=== PATIENT | female | born 1945 | race Caucasian/White ===

== ENCOUNTER 2017-09-14 08:50 | Day surgery (SDC) | payer MEDICARE, OTHER ==
[~2017-09-14] VITALS: Ht 160 cm; Wt 75.5 kg
[~2017-09-14 08:50] MED LIST: ARIP15 PO; ASPI325 PO; CALCA500CH PO; CITA20 PO; CLOM50A PO; DILT180; DULO30 PO; FISH1000 PO; LORA2 PO; METO25ER; MIRT30 PO; MULVITMINE PO; Omeprazole20 M1; QUET300 PO; TOCO1000 PO; TOCO400 PO; TRAZ150T57 PO
== END 2017-09-14 10:46 | disposition home or self-care (01) ==
LOC: ORSCSDS 08:50
PROVIDERS: Internal Medicine Gastroenterology
PROC: 0DBN8ZX Excision of Sigmoid Colon, Via Natural or Artificial Opening Endoscopic, Diagnostic (ICD-10-PCS; principal; 2017-09-14 10:15)
PROC: 0DBK8ZX Excision of Ascending Colon, Via Natural or Artificial Opening Endoscopic, Diagnostic (ICD-10-PCS; principal; 2017-09-14 10:15)
PROC: 0DBL8ZX Excision of Transverse Colon, Via Natural or Artificial Opening Endoscopic, Diagnostic (ICD-10-PCS; principal; 2017-09-14 10:15)
PROC: 0DBM8ZX Excision of Descending Colon, Via Natural or Artificial Opening Endoscopic, Diagnostic (ICD-10-PCS; principal; 2017-09-14 10:15)
DX: Z12.11 Encounter for screening for malignant neoplasm of colon (principal); D12.2 Benign neoplasm of ascending colon; D12.3 Benign neoplasm of transverse colon; D12.4 Benign neoplasm of descending colon; D12.5 Benign neoplasm of sigmoid colon; K64.8 Other hemorrhoids; K57.30 Diverticulosis of large intestine without perforation or abscess without bleeding; E78.5 Hyperlipidemia, unspecified; I10 Essential (primary) hypertension; I48.91 Unspecified atrial fibrillation; G47.33 Obstructive sleep apnea (adult) (pediatric); F32.9 Major depressive disorder, single episode, unspecified; Z87.891 Personal history of nicotine dependence; Z79.82 Long term (current) use of aspirin; Z79.899 Other long term (current) drug therapy
CPT/HCPCS: 88305

== ENCOUNTER → 2018-07-24 | Outpatient (CLI) | payer MEDICARE, OTHER | END | disposition home or self-care (01) | LOC: LAB SHORT 07:24 → PLD 07:24 | DX: D48.5 Neoplasm of uncertain behavior of skin (principal) | CPT/HCPCS: 88305 ==

== ENCOUNTER 2018-08-31 16:02 | Emergency (ER) | payer MEDICARE, OTHER ==
[~2018-08-31] VITALS: Ht 160 cm; Wt 73.9 kg
[2018-08-31 16:22] LABS: BASOPHILS ABSOLUTE AUTO 0.05 K/mm3 (0.00-0.23); BASOPHILS PERCENT AUTO 0 % (0-2); EOSINOPHILS ABSOLUTE AUTO 0.01 K/mm3 (0.00-0.68); EOSINOPHILS PERCENT AUTO 0 % (0-6); Hematocrit 42.1 % (33.0-51.0); Hemoglobin 14.3 g/dL (11.5-16.0); IMMATURE GRAN ABSOLUTE AUTO 0.06 K/mm3 (0.00-0.10); IMMATURE GRAN PERCENT AUTO 0 % (0-1); LYMPHOCYTES ABSOLUTE AUTO 1.84 K/mm3 (0.84-5.20); LYMPHOCYTES PERCENT AUTO 12 % (21-46); MONOCYTES PERCENT AUTO 7 % (4-13); Mean Corpuscular HGB 32.8 pg (26.0-34.0); Mean Corpuscular Volume 97 fL (80-100); NEUTROPHILS ABSOLUTE AUTO 11.98 K/mm3 (1.96-9.15); NEUTROPHILS PERCENT AUTO 80 % (41-73); Platelet Count 231 K/mm3 (150-400); RDW Coefficient Variation 12.8 % (11.7-14.2); RDW Standard Deviation 45.4 fL (35.1-46.3); Red Blood Cell Count 4.36 M/mm3 (3.80-5.20); White Blood Cell Count 14.94 K/mm3 (4.00-11.30)
[2018-08-31 16:44] LABS: Alanine Aminotransfer (ALT/SGP 79 U/L (12-78); Albumin, Blood 3.5 g/dL (3.4-5.0); Albumin/Globulin Ratio 0.9 (0.8-1.8); Alk Phos 117 U/L (50-136); Anion Gap 12 mmol/L (6-16); Aspartate Aminotrans (AST/SGOT 70 U/L (12-37); Bilirubin, Total 0.7 mg/dL (0.1-1.0); Blood Urea Nitrogen 30 mg/dL (8-24); Bun/Creatinine Ratio 30.8 (12.0-20.0); CO2, Blood 22 mmol/L (21-32); Calcium, Blood 8.6 mg/dL (8.5-10.1); Chloride, Blood 105 mmol/L (98-108); Creatinine, Blood 0.98 mg/dL (0.40-1.00); Globulin, Blood 3.7 g/dL (2.2-4.0); Glomerular Filtration Rate 59 (60-); Glucose, Blood 282 mg/dL (70-99); Sodium, Blood 139 mmol/L (136-145); Total Protein, Blood 7.2 g/dL (6.4-8.2); Troponin I <0.015 ng/mL (0.000-0.040)
== END 2018-08-31 17:45 | disposition home or self-care (01) ==
LOC: ER 16:02
PROVIDERS: Emergency Medicine
DX: I48.92 Unspecified atrial flutter (principal); E66.9 Obesity, unspecified; I48.91 Unspecified atrial fibrillation; Z87.891 Personal history of nicotine dependence
CPT/HCPCS: 80053; 84484; 85025; 92960; 93005; 93010; 96374-59; 99285-25; J2704; J7030

== ENCOUNTER 2020-07-14 15:38 | Observation (INO) | payer MEDICARE, OTHER ==
[~2020-07-14] VITALS: Ht 160 cm; Wt 60.2 kg
[~2020-07-14 15:38] MED LIST changes: -Omeprazole20 M1
[2020-07-14 17:00] LABS: Calcium, Ionized (POC) 1.09 mmol/L (1.10-1.46); Chloride (POC) 98 mmol/L (98-108); Creatinine (POC) 1.4 mg/dL (0.6-1.0); Glucose (ISTAT POC) 85 mg/dL (70-99); Hemoglobin (POC) 13.3 g/dL (12.0-16.0); Potassium (POC) 4.2 mmol/L (3.5-5.5); Sodium (POC) 134 mmol/L (135-148); Total CO2 (POC) 27 mmol/L (21-32)
[2020-07-14] MEDS ORDERED: MAGNESIUM OXID500 MG PO (17:08)
[2020-07-14] MEDS ORDERED: VENL150ER PO (17:08)
[2020-07-14] MEDS ORDERED: TROSPIUM CHLORI20 MG PO (17:09)
[2020-07-14] MEDS ORDERED: MELA3 PO (17:09)
[2020-07-14] MEDS ORDERED: Amiodarone HCl200 MG PO (17:09)
[2020-07-14] MEDS ORDERED: ENTRESTO 24 MG1 EACH PO (17:10)
[2020-07-14] MEDS ORDERED: ONE DAILY WOME1 EAC2 PO (17:10)
[2020-07-14] MEDS ORDERED: ELIQUIS5 MG PO (17:10)
[2020-07-14] MEDS ORDERED: Vitamin B-121000 MCG PO (17:10)
[2020-07-14] MEDS ORDERED: Omeprazole20 M1 PO (19:49)
[2020-07-14 20:00] LABS: BASOPHILS ABSOLUTE AUTO 0.04 K/mm3 (0.00-0.23); BASOPHILS PERCENT AUTO 0 % (0-2); EOSINOPHILS ABSOLUTE AUTO 0.03 K/mm3 (0.00-0.68); EOSINOPHILS PERCENT AUTO 0 % (0-6); Hematocrit 39.2 % (33.0-51.0); Hemoglobin 13.5 g/dL (11.5-16.0); IMMATURE GRAN ABSOLUTE AUTO 0.04 K/mm3 (0.00-0.10); IMMATURE GRAN PERCENT AUTO 0 % (0-1); LYMPHOCYTES ABSOLUTE AUTO 2.32 K/mm3 (0.84-5.20); LYMPHOCYTES PERCENT AUTO 20 % (21-46); MONOCYTES ABSOLUTE AUTO 1.03 K/mm3 (0.16-1.47); MONOCYTES PERCENT AUTO 9 % (4-13); Mean Corpuscular HGB 31.9 pg (26.0-34.0); Mean Corpuscular HGB Conc 34.4 g/dL (31.5-36.5); Mean Corpuscular Volume 93 fL (80-100); Mean Platelet Volume 9.1 fL (9.1-12.4); NEUTROPHILS ABSOLUTE AUTO 7.97 K/mm3 (1.96-9.15); NEUTROPHILS PERCENT AUTO 70 % (41-73); Platelet Count 190 K/mm3 (150-400); RDW Coefficient Variation 12.4 % (11.7-14.2); RDW Standard Deviation 41.9 fL (35.1-46.3); Red Blood Cell Count 4.23 M/mm3 (3.80-5.20); White Blood Cell Count 11.43 K/mm3 (4.00-11.30)
[2020-07-14 20:25] LABS: Albumin, Blood 2.7 g/dL (3.4-5.0); Bilirubin, Total 0.7 mg/dL (0.1-1.0); Calcium, Blood 6.6 mg/dL (8.5-10.1); Globulin, Blood 2.6 g/dL (2.2-4.0); Potassium, Blood 3.2 mmol/L (3.5-5.5); Total Protein, Blood 5.3 g/dL (6.4-8.2)
[2020-07-14 20:48] LABS: SARS-Cov-2 (COVID-19) PCR, MMC NEGATIVE (NEGATIVE)
--- NOTE | 2020-07-14 23:31 | NUR ---
ADMIT PT ADMITTED FOR L HIP/PELVIS FX. ARRIVED TO RM @2315. SLIDE TRANSFER TO NEW BED. VERBAL, RESPONDS APPROPRIATELY TO YES/NO QUESTIONS. CALL LIGHT & BED ALARM IN PLACE. WILL MONITOR.
--- NOTE | 2020-07-15 06:26 | NUR ---
SHIFT SUMMARY AOX2-UNAWARE DATE/TOWN, KNOWS [facility] IN HOSPITAL. FOLLOWS SIMPLE DIRECTIONS. FORGETFUL & CONFUSED. STATES "I DON'T KNOW" TO MANY QUESTIONS. HX DEMENTIA. SLOW TO RESPOND, GARBLE, MUMMBLING SPEECH @TIMES. HAS INFREQUENT ALLOVER BODY TWITCHING. PT DROWSY, FALLS ASLEEP WITHIN SECONDS OF BEING STIMULATED, WAKENS BACK UP c VERBAL STIMULI. ADMITTED FOR L HIP/PELVIS FX. DENIES ANY PAIN @REST, DOES GRIMACE, MOAN c REPOSITIONING. NO PAIN MEDS GIVEN SINCE PT VERY DROWSY. SPO2 DROPS TO 70'S WHEN PT FALLS ASLEEP W/O CPAP ON, CPAP PLACED & CONT PULSE OX >90%. HAS BRUISES SCATTERED T/O BODY FROM FALLING FREQUENTLY @HOME. CALL LIGHT & BED ALARM IN PLACE FOR SAFETY.
[2020-07-15 07:03] LABS: BASOPHILS ABSOLUTE AUTO 0.05 K/mm3 (0.00-0.23); BASOPHILS PERCENT AUTO 1 % (0-2); EOSINOPHILS ABSOLUTE AUTO 0.05 K/mm3 (0.00-0.68); EOSINOPHILS PERCENT AUTO 1 % (0-6); Hematocrit 37.2 % (33.0-51.0); Hemoglobin 12.7 g/dL (11.5-16.0); IMMATURE GRAN ABSOLUTE AUTO 0.03 K/mm3 (0.00-0.10); IMMATURE GRAN PERCENT AUTO 0 % (0-1); LYMPHOCYTES ABSOLUTE AUTO 2.14 K/mm3 (0.84-5.20); LYMPHOCYTES PERCENT AUTO 26 % (21-46); MONOCYTES ABSOLUTE AUTO 0.98 K/mm3 (0.16-1.47); MONOCYTES PERCENT AUTO 12 % (4-13); Mean Corpuscular HGB 31.7 pg (26.0-34.0); Mean Corpuscular HGB Conc 34.1 g/dL (31.5-36.5); Mean Corpuscular Volume 93 fL (80-100); Mean Platelet Volume 9.9 fL (9.1-12.4); NEUTROPHILS ABSOLUTE AUTO 4.85 K/mm3 (1.96-9.15); NEUTROPHILS PERCENT AUTO 60 % (41-73); Platelet Count 178 K/mm3 (150-400); RDW Coefficient Variation 12.2 % (11.7-14.2); RDW Standard Deviation 42.1 fL (35.1-46.3); Red Blood Cell Count 4.01 M/mm3 (3.80-5.20)
[2020-07-15 07:29] LABS: Bun/Creatinine Ratio 19.8 (12.0-20.0); Creatinine, Blood 1.31 mg/dL (0.40-1.00); Potassium, Blood 4.2 mmol/L (3.5-5.5)
[2020-07-15 08:09] LABS: Calcium, Blood 8.8 mg/dL (8.5-10.1)
--- NOTE | 2020-07-15 17:00 | NUR ---
CARE COORDINATION REFERRAL - ADMIT: 07/14/2020 DISCHARGE: DX: L HIP FRACTURE CC: Tyson MAYS MORGAN CALL: RESIDENCE: HOME [address] [facility] [address], [place]. [phone] CAREGIVER: KATJA BRANDON, SPOUSE / PARTNER, DX: L HIP FRACTURE, ANXIETY, A-FIB, HTN DME: CPAP MACHINE AND SUPPLIES CCM: NONE HOME HEALTH: NONE SUMMARY: PT. PRESENTED TO THE ED VIA EMS WITH CHIEF COMPLAINT OF LEFT HIP PAIN AFTER A GROUND LEVEL FALL 1-2 HOURS PRIOR TO ARRIVAL. SHE TRIPPED ON A RUG, WHICH CAUSED HER TO FALL ON THE LEFT SIDE AND HIT HER HEAD. SHE WAS NOT ABLE TO WALK AFTERWARDS DUE TO PAIN IN HER LEFT HIP. IMAGING REVIELED NONDISPLACED FRACTURES OF THE LEFT SUPERIOR AND INFERIOR PUBIC RAMI. PT. SUBSEQUENTLY ADMITTED. Impression and plan as noted in chart. Discussed care with Dr. Delvis Cantu this am. Ortho was consulted regarding patient's care. No surgical intervention indicated. Additionally, PT will evaluate ability to self-transfer. Pt. could potentially discharge by Monday or Monday this week with home health in place. Noted by Tyson Mays
[2020-07-15 18:00] LABS: Source, Urine Catheter
[2020-07-15 18:04] LABS: Bilirubin, Urine Neg (Neg); Blood, Urine Neg (Neg); Color, Urine Yellow (P-Yellow); Glucose Qualitative, Urine Neg (Neg); Ketones, Urine 1+ (Neg); Leukocyte Esterase, Urine 1+ (Neg); Nitrite, Urine Neg (Neg); Protein, Urine 1+ (Neg); Urobilinogen, Urine NORM (Normal)
--- NOTE | 2020-07-15 18:09 | NUR ---
SHIFT SUMMARY L HIP PAINFUL THIS SHIFT, GOT TYLENOL AND OXY. NO URINE OUTPUT, BLADDER SCANNED AT 430/5PM WHICH SHOWED 420ML. CALLED DR TORRES, HE ORDERED NS BOLUS 500CC AND A DANIEL PLACED, PT UNABLE TO PASS THE URINE IN HER BLADDER. DANIEL PLACED AT 1730. GOT UP WITH PT WITH AO1 AND GAIT BELT. NEEDS LOTS OF CUES TO REMAIN NON WT BEARING ON LLE. IN THE MORNING, SHE HAD BEEN DESATING WITH NAPS, SHE REMAINED ON CPAP UNTIL SHE WAS FULLY AWAKE INTHE AFTERNOON. VISITED. PT ORIENTED TO PLACE AND FALLS, BUT DEFINITELY HAS A COGNITIVE DEFICIT, OT TO DO EVAL TOMORROW. CALL LIGHT IN REACH, [facility]
[2020-07-15 18:27] LABS: Appearance, Urine Clear (Clear)
[2020-07-15 18:29] LABS: Bacteria Mod /hpf; Red Blood Cells, Urine 0-2 /hpf (0-2); Squamous Epithelial Cells Few /hpf (Few)
[2020-07-16] MEDS ORDERED: OMEPRAZOLE MAGN20 M1 PO (05:08)
--- NOTE | 2020-07-16 05:50 | NUR ---
SHIFT SUMMARY- PT. A&OX2, FORGETFUL. ON BEDREST LAST NIGHT, PAINFUL TO THE L HIP. MEDICATED PER EMAR WITH GOOD EFFECT. PT. ON RA WHILE AWAKE USES CPAP @HS. CONT BIOX IN PLACE. DANIEL CATHETER PATENT AND DRAINING, ATTENDS ON. BOTTOM RED, MEPILEX APPLIED TO SACRUM. PT. DENIES ANY NEEDS AT THIS TIME, VSS. CALL LIGHT WITHIN REACH, SIDE RAILS UPX2, AND BED ALARM ON FOR SAFETY. WILL CONT TO MONITOR.
--- NOTE | 2020-07-16 08:00 | NUR ---
PT PLEASANT, SOME SLOW TO RESPOND, A/O X2+. NOT ABLE TO RECALL PRESIDENT. STATES PAIN MUCH BETTER WHEN SITTING IN CHAIR TODAY. SOME UNABLE TO ANSWER SOME QUESTIONS. FORGOT PH THERAPY WAS JUST IN ROOM 15 MIN PRIOR. HR REG, NO MURMER NOTED. NO TELE. LUNGS CLEAR T/O. RESP ARE EVEN, UNLABORED. ON R.A. BT X4 LAST B/M 2 DAYS. PT UNSURE. VIODS DANIEL CATH. CLEAR YELLOW FLUID DRAINING. BED IN LOW POSITION, CALL LITE IN REACH, CALLS APPROP. BED ALARM ON FOR SAFETY
--- NOTE | 2020-07-16 17:50 | NUR ---
PT PLEASANT COOP TODAY. DID HAVE MUCH INCREASED ANX WHEN HUSB HERE. WAS CALM PRIOR TO VISIT. DR NATHAN IN TO SEE THIS TINY. GOAL FOR DISCHARGE IS FOR PT TO GET STRONG ENOUGH TO AMBULATE ABOUT HOME TO BE ABLE TO GO HOME. NO NEW CONERNS NOTED TODAY. BED IN LOW POSITION, CALL LITE IN REACH, BED ALRM ON FOR SAFETY
[2020-07-17 04:56] LABS: BASOPHILS ABSOLUTE AUTO 0.04 K/mm3 (0.00-0.23); BASOPHILS PERCENT AUTO 1 % (0-2); EOSINOPHILS ABSOLUTE AUTO 0.08 K/mm3 (0.00-0.68); EOSINOPHILS PERCENT AUTO 1 % (0-6); Hematocrit 34.7 % (33.0-51.0); Hemoglobin 11.8 g/dL (11.5-16.0); IMMATURE GRAN ABSOLUTE AUTO 0.02 K/mm3 (0.00-0.10); IMMATURE GRAN PERCENT AUTO 0 % (0-1); LYMPHOCYTES ABSOLUTE AUTO 1.47 K/mm3 (0.84-5.20); LYMPHOCYTES PERCENT AUTO 21 % (21-46); MONOCYTES ABSOLUTE AUTO 0.93 K/mm3 (0.16-1.47); MONOCYTES PERCENT AUTO 13 % (4-13); Mean Corpuscular HGB 31.6 pg (26.0-34.0); Mean Corpuscular Volume 93 fL (80-100); Mean Platelet Volume 9.5 fL (9.1-12.4); NEUTROPHILS ABSOLUTE AUTO 4.54 K/mm3 (1.96-9.15); NEUTROPHILS PERCENT AUTO 64 % (41-73); Platelet Count 140 K/mm3 (150-400); RDW Coefficient Variation 12.4 % (11.7-14.2); RDW Standard Deviation 42.1 fL (35.1-46.3); Red Blood Cell Count 3.74 M/mm3 (3.80-5.20); White Blood Cell Count 7.08 K/mm3 (4.00-11.30)
[2020-07-17 05:15] LABS: Albumin, Blood 3.3 g/dL (3.4-5.0); Bilirubin, Total 0.9 mg/dL (0.1-1.0); Bun/Creatinine Ratio 20.2 (12.0-20.0); Calcium, Blood 8.3 mg/dL (8.5-10.1); Creatinine, Blood 1.19 mg/dL (0.40-1.00); Globulin, Blood 3.4 g/dL (2.2-4.0); Potassium, Blood 4.2 mmol/L (3.5-5.5); Total Protein, Blood 6.7 g/dL (6.4-8.2)
--- NOTE | 2020-07-17 06:10 | NUR ---
SHIFT SUMMARY- PT. VERY ANXIOUS DURING SHIFT CHANGE, SITTING UP IN CHAIR. DAY RN AND THIS NURSE ASSISTED PT. BACK INTO BED REPOSITIONED FOR COMFORT AND REASSURED SAFETY. C/O PAIN TO L HIP, MEDICATED PER EMAR GOOD RELIEF. PT. CONTINUED TO BE ANXIOUS T/O THE NIGHT. NOTIFIED HOSPITALIST 2X, RECEIVED ORDER FOR PO BENADRYL WITH NO EFFECT, NEXT ORDER FOR PO ATIVAN WITH VERY LITTLE EFFECT. PT. RESTLESS IN BED AND PULLING ON DANIEL CATHETER. REPOSITIONED FOR COMFORT SEVERAL TIMES DURING THE NIGHT. PLACED ON IV FLUIDS X1L FOR LOW BP. CALL LIGHT WITHIN REACH, SIDE RAILS UPX2, AND BED ALARM ON. WILL CONT TO MONITOR.
--- NOTE | 2020-07-17 07:00 | NUR ---
PT HAVING OCCATIONAL JERKY MOTIONS ALL EXT. DENIES PAIN. ALERT TO SELF, IS NOT REDIRECTABLE. PANICKY, FRANTIC. STATES NOT KNOWN WHY. ASKED IF SHE STILL UPSET FROM [facility] VISIT LAST AFT. STATES NO. BUT HUSB UPSET SHE SIGNED SOMETHING. NO IDEA WHAT. SHE HAS BEEN QUITE UPSET SINCE [facility] LEFT YEST. SOME WHILE HE WAS HERE. PER REPORT SHE HAS BEEN PANICKY AND FRANTIC ALL TINY. PRESENTLY PULLED OFF DANIEL CATH STAT LOCK FOR 3RD TIME TONITE. TRYING TO PULL IV AND DANIEL. ATTEMPED TO GET OUT OF BED. HIP FX. PLACED SOFT WRIST RESTRAINTS FOR HER SAFETY. DENIES BATHROOM NEEDS. DENIES ANX OR PANIC ATTACK, DENIES PAIN, BUT IS ORIENTED TO SELF ONLY AND HUSB NAME. STATES May. NOTIFIED, [facility] ORDERED. H/R REG, NO MURMER NOTED. NO TELE. LUNGS CLEAR, RESP SOMETIMES EVEN AND UNLABORED, AND OTHERTIMES FAST AND SHALLOW. VSS. BT X4 ALST BM NOT KNOWN BY PT. VOIDS DANIEL CATH, YELLOW FLUID DRAINING. BED IN LOW POSITION, CALLLITE IN REACH, BED ALARM AND SOFT WRIST RESTRAINTS FOR SAFETY
--- NOTE | 2020-07-17 08:34 | NUR ---
Update: 07/16/20Received call from patient's Jakub requesting that I come speak with him. Jakub had questions regarding Diane's care and anticipated discharge. Concerned that Diane is unable to bare weight well and feels that he will not be able to help her. Discussed home health. He stated that home health would be needed at a minimum. They have 4 steps leading into their home and that is also a concern. In addition, patient receives ECT from Dr. Spicer in [place] and Jakub is concerned that Diane might digress if she misses her appointments. Discussed possible transportation options. I advised pt. and that I will discuss care further with [facility] physician in the AM and give Jakub a call when I have additional information. Both patient and seemed satisfied with our discussion and are agreeable to follow-up tomorrow. Noted by Tyson Nelson
[2020-07-17 09:14] LABS: U Amphetamine Screen Not Detected; U Barbituate Screen Not Detected; U Benzodiazapine Screen DETECTED; U Buprenorphine Screen Not Detected; U Cannabinoids Screen Not Detected; U Cocaine Screen Not Detected; U Methadone Screen Not Detected; U Methamphetamine Screen Not Detected; U Opiates Screen Not Detected; U Oxycodone Screen DETECTED; U Phencyclidine Screen Not Detected; U Propoxyphene Screen Not Detected
--- NOTE | 2020-07-17 10:00 | NUR ---
PT UP IN CHAIR AT THIS TIME. ATE BREAKFAST. PT PREPARING TO WORK WITH HER. DENIES PAIN. CALM, OCCATIONAL JERKY MOTIONS ALL EXT. PT ABLE TO TELL ME MONTH YEAR. NAME . HUSB NAME. ABLE TO FOLLOW INST. REMOVED RESTRAINTS. PT PLEASNT CONFUSED. IN CHAIR, ALARM ON FOR SAFETY
--- NOTE | 2020-07-17 12:38 | NUR ---
Update 07/17/20: Discussed care with Dr. Deng this am. Pt. was placed in restraints last night. Decision made to discharge into SNF if they are able to accept her. Though pt. is now out of restraints, she will be required to be out of them for 24 hours prior to SNF approving if beds available. Will be sending SNF checklist.
--- NOTE | 2020-07-17 15:56 | NUR ---
BENJAMIN IN ROOM. STATES NO BM SINCE 4-5 DAYS. PT UNSURE. CALLED DR JOHANSEN. ORDERS FOR MIRALAX BID PRN BENJAMIN ALSO CONCERNED PT IS JERKING AND HIGH ANX. WE DISCUSSED HER (PT) CONCERN OVER SIGNING PAPER. HER CONCERN OF HIS BEING MAD AT HER FOR DOING SO . HE STATES HE TOLD HER HE WANTED HER NOT TO SIGN THINGS WHEN CONFUSED. ASKED IF HE GAVE HER ANY MEDS YEST. HE DENIED. RELAYED INFO TO
--- NOTE | 2020-07-17 16:30 | NUR ---
PT PLEASANT TODAY. HAS CALMED DOWN QUITE A BIT. SOME JERKING AT ALL EXTREMETIES CONTINUES. IMPROVED. HUSB IN TO SEE. STATES NO BM IN 4-5 DAYS. GAVE BROWN COW AND CALLED DR Simona JAMES ORDERED. PT PROMTLY HAD BM, SOFT, LARGE, SO DID NOT NEED TO GIVE. PT SITTING COMFORTABLY IN CHAIR. NO C.O PAIN. CHAIR ALARM ON FOR SAFETY.
--- NOTE | 2020-07-17 17:10 | NUR ---
ASSUMED CARE FOR THIS PT
--- NOTE | 2020-07-17 18:39 | NUR ---
PT RESTING IN CHAIR. DECLINED TO GO TO BED AT THIS TIME. WILL CONTINUE TO MONITOR UNTIL SHIFT CHANGE
--- NOTE | 2020-07-17 19:10 | NUR ---
ASSUMED CARE RECEIVED REPORT FROM SANTY TORRES. PT RESTING, IN NO ACUTE DISTRESS. NO ACUTE NEEDS ASSESSED AT THIS TIME. CALL LIGHT, POSSESSIONS IN REACH. BED IN LOW POSITION WITH ALARMS ON.
--- NOTE | 2020-07-18 05:33 | NUR ---
SOURCING ENGINEER SUMMARY PT RESTING, IN NO ACUTE DISTRESS. VS REVIEWED,WNL. SLEPT THROUGHOUT THE NIGHT, O2 SATS STABLE ON CPAP; NO S/S RESPIRATORY DISTRESS NOTED. REMAINED FREE FROM RESTRAINTS. POSTERIOR HIP PRECAUTIONS OBSERVED, PT TOLERATED STAND-PIVOT TRANSFER TO [facility] WITH FWW AND GAITBELT WELL. PAIN MANAGED WITH MEDS ORDERED, WITH EFFECTIVE RELIEF. NO FURTHER C/O LT HIP PAIN AT THIS TIME. NO OTHER ACUTE CHANGES IN CONDITION TO REPORT OVERNIGHT. NO ACUTE NEEDS ASSESSED AT THIS TIME. CALL LIGHT, POSSESSIONS IN REACH, BED IN LOW POSITION WITH ALARMS ON. WILL CONTINUE TO PROVIDE CARE UNTIL REPORT GIVEN TO ONCOMING RN.
--- NOTE | 2020-07-18 18:35 | NUR ---
SHIFT SUMMARY PT IS A&OX2. PT IS IMPULSIVE AT TIMES. PT CAUGHT OR PULLED OUT IV. NO IV ACCESS ORDER WAS GIVEN AND NS FLUIDS DC. TOBACCO BALER AND THIS RN HAVE BEEN ENCOURAGIN PT TO DRINK WATER WHILE IN ROOM WITH HER. PT HAD FAMILY COME TO VIST DURING VISTING HOURS. PT WORKED WITH PHYSICAL THERAPY AND WALKED IN THE ROOM. PT DENIES P/N/V. NO ACUTE CHANGES TO REPORT, WILL CONTINUE TO MONITOR UNTIL SHIFT CHANGE.
--- NOTE | 2020-07-19 04:41 | NUR ---
SHIFT SUMMARY PAITENT ALERT AND ORIENTED X2. ONLY COMPLAINED OF PAIN UPON REPOSITIONING IN BED. PATIENT WAS QUITE ANXIOUS SEVERAL TIMES OVERNIGHT AND REQUIRED TO BE COACHED WITH BREATHING EXERCISES IN ORDER TO CALM DOWN. BED IN LOWEST POSITION WITH WHEELS LOCKED AND ALARM ON. CALL LIGHT WITHIN REACH. REPORT GIVEN TO ONCOMING RN.
--- NOTE | 2020-07-19 17:15 | NUR ---
SHIFT SUMMARY NO ACUTE CHANGES, A&Ox2 (SELF&PLACE), COOPERATIVE c CARE. PT HAS FREQUENT JERKING MOTIONS IN ALL EXTREMITIES. FOUL SMELLING ODOR c URGENCY. PT DOING WELL c STAND PIVOT TO BSC WITH MINIMAL ASSITANCE. VERY ANXIOUS AT TIMES. PT IS CURRENTLY RESTING IN BED WITH CALL LIGHT WITHIN REACH, CALLS APPROPRIATELY OR WILL HOLLER OUT.
--- NOTE | 2020-07-19 19:15 | NUR ---
ASSUMED CARE RECEIVED REPORT FROM SANTY DORADO. PT RESTING, IN NO ACUTE DISTRESS. NO ACUTE NEEDS ASSESSED AT THIS TIME. CALL LIGHT, POSSESSIONS IN REACH, BED ALARM ON.
--- NOTE | 2020-07-20 07:08 | NUR ---
CNC MECHANIC SUMMARY PT ASLEEP, IN NO ACUTE DISTRESS. VS REVIEWED,WNL. O2 SATS >92% ON 1L/NC, PT INCREASINGLY ANXIOUS WHEN CPAP IS IN PLACE; WORE FOR A SHORT TIME LAST NIGHT. SLEPT ON AND OFF. NO OTHER ACUTE CHANGES IN CONDITION NOTED. AWAITING PLACEMENT. NO ACUTE NEEDS ASSESSED. REPORT GIVEN TO SANTY DORADO.
--- NOTE | 2020-07-20 11:09 | NUR ---
Update 07/20/20 0956: Per notes from this weekend, pt. awaiting placement at SNF. Spoke with this am and he would like to have her transferred to a SNF in [place] if possible, so that she can continue to receive ECT from Dr. Spicer in [place]. Pt. successfully went without restraints for the last 48 hours. Contacted Az[facility] with [facility] central placement. They are attempting to determine if SNF bed available at the [facility]. Pt. will likely be able to transfer via reclining wheel chair. No insurance benefit for transportation. Will work to find assistance for transportation cause if indicated.
--- NOTE | 2020-07-20 11:32 | NUR ---
CONCERNED REGARDING PT ORAL INTAKE. PT STATES SHE HAS NOT BEEN GETTING A MENU EVERYDAY AND THE FOODS BROUGHT TO HER ARE OFTEN FOODS SHE DOES NOT LIKE. FILLED OUT MENU WITH PT TODAY, SHE DOES NEED ASSITANCE CIRCLING THE CHOICES. DISCUSSED WITH NURSING STAFF TO ENCOURAGE ORAL INTAKE AND FLUIDS ESPECIALLY DURING MEAL TIMES.
[2020-07-20 14:51] LABS: Influenza A Negative (NEGATIVE); Influenza B Negative (NEGATIVE)
[2020-07-20 15:21] LABS: SARS-Cov-2 (COVID-19) PCR, MMC NEGATIVE (NEGATIVE)
[2020-07-20] MEDS ORDERED: MULVITA PO (16:11)
[2020-07-20] MEDS ORDERED: OXAYDO5 M1 PO (16:12)
[2020-07-20] MEDS ORDERED: MIRALAX17 GM PO (16:14)
[2020-07-20] MEDS ORDERED: VENL150ER PO (16:15)
[2020-07-20] MEDS ORDERED: Sanctura20 MG PO (16:15)
--- NOTE | 2020-07-20 16:53 | NUR ---
Update 07/20/20 1647: Discharge Planning: Several discussions with patient's and SNF central admissions for [facility] regarding care throughout the day. Arranged for [facility] to cover the cost of transportation to [facility] in [place]. Scheduled pt. to be transported at 1700 by [facility] van. Requested a reclining wheelchair for patient's comfort. Discharge packet given to nurse including script for Oxycodone. I met with pt. and her Jakub prior to discharge to discuss in person the discharge plan. They will contact [facility] with any concerns while pt. is receiving rehabilitation.
--- NOTE | 2020-07-20 18:24 | NUR ---
PT DISCHARGED @ APPROX 1820 VIA WHEELCHAIR BY [facility]. PT BEING TAKEN TO [facility] IN [place]. AT BEDSIDE WHEN TRANSPORT ARRIVED. PT AND STATED THEY HAD ALL OF THEIR BELONGINGS. PT STILL REMAINS ANXIOUS BUT COOPERATIVE. [facility] PACKET AND HARD SCRIPT PROVIDED TO NURSE CLINICIAN TO GIVE TO STAFFING AT SNF. REPORT CALLED TO SANTY MCDONOUGH @ APPROX 1630 PRIOR TO PT DISCHARGE.
--- NOTE | 2020-07-20 21:09 | NUR ---
REVIEWED DISCHARGE INFORMATION FOR [facility] IN [place] WHERE PT WAS DISCHARGED TO TODAY.
== END 2020-07-20 18:22 ==
LOC: ER 15:38 → MEDS 15:39 → ER 21:00 → MEDS 23:11 → ENPENDDIS 07-20 16:04 → MEDS 07-20 18:22
PROVIDERS: Emergency Medicine; Family Medicine; Hospitalist; ADMIT Family Medicine
DX: S32.512A Fracture of superior rim of left pubis, initial encounter for closed fracture (principal); S32.592A Other specified fracture of left pubis, initial encounter for closed fracture; S32.435A Nondisplaced fracture of anterior column [iliopubic] of left acetabulum, initial encounter for closed fracture; W01.0XXA Fall on same level from slipping, tripping and stumbling without subsequent striking against object, initial encounter; I48.91 Unspecified atrial fibrillation; R29.6 Repeated falls; Z20.822 Contact with and (suspected) exposure to COVID-19; F33.9 Major depressive disorder, recurrent, unspecified; F41.9 Anxiety disorder, unspecified; G47.33 Obstructive sleep apnea (adult) (pediatric); E87.6 Hypokalemia; D72.829 Elevated white blood cell count, unspecified; R40.0 Somnolence; N17.9 Acute kidney failure, unspecified; N18.30 Chronic kidney disease, stage 3 unspecified; E87.1 Hypo-osmolality and hyponatremia; E86.0 Dehydration; Z79.01 Long term (current) use of anticoagulants
CPT/HCPCS: 36415; 51702; 70450; 71045; 73502; 73700; 80047; 80048; 80053; 81001; 82140; 85014; 85025; 87086; 87804; 87807; 93005; 93010; 94660; 94762; 96374; 96375; 96376; 97110; 97116; 97129; 97130; 97162; 97166; 97530; 97530-CO; 97535; 97535-CO; 99285-25; A9270; G0378; G0480; J1170; J2405; J7030; U0004

== ENCOUNTER 2021-09-22 20:04 | Inpatient (IN) | payer MEDICARE, OTHER ==
[~2021-09-22] VITALS: Ht 160 cm; Wt 75.8 kg
[~2021-09-22 20:04] MED LIST changes: +Amiodarone HCl200 MG PO; +ELIQUIS5 MG PO; +ENTRESTO 24 MG1 EACH PO; +MAGNESIUM OXID500 MG PO; +MELA3 PO; +MIRALAX17 GM PO; +MULVITA PO; +OMEPRAZOLE MAGN20 M1 PO; +ONE DAILY WOME1 EAC2 PO; +OXAYDO5 M1 PO; +Omeprazole20 M1 PO; +Sanctura20 MG PO; +TROSPIUM CHLORI20 MG PO; +VENL150ER PO; +Vitamin B-121000 MCG PO
[2021-09-22] MEDS ORDERED: ZOCOR20 MG PO (20:34)
[2021-09-22] MEDS ORDERED: VITAMIN D325 MC3 PO (20:36)
[2021-09-22 23:11] LABS: BASOPHILS ABSOLUTE AUTO 0.03 K/mm3 (0.00-0.23); BASOPHILS PERCENT AUTO 0 % (0-2); EOSINOPHILS ABSOLUTE AUTO 0.08 K/mm3 (0.00-0.68); EOSINOPHILS PERCENT AUTO 1 % (0-6); Hematocrit 34.1 % (33.0-51.0); Hemoglobin 11.8 g/dL (11.5-16.0); IMMATURE GRAN ABSOLUTE AUTO 0.05 K/mm3 (0.00-0.10); IMMATURE GRAN PERCENT AUTO 1 % (0-1); LYMPHOCYTES ABSOLUTE AUTO 1.02 K/mm3 (0.84-5.20); LYMPHOCYTES PERCENT AUTO 10 % (21-46); MONOCYTES ABSOLUTE AUTO 0.88 K/mm3 (0.16-1.47); MONOCYTES PERCENT AUTO 8 % (4-13); Mean Corpuscular HGB 32.6 pg (26.0-34.0); Mean Corpuscular HGB Conc 34.6 g/dL (31.5-36.5); Mean Corpuscular Volume 94 fL (80-100); Mean Platelet Volume 9.5 fL (9.1-12.4); NEUTROPHILS ABSOLUTE AUTO 8.48 K/mm3 (1.96-9.15); NEUTROPHILS PERCENT AUTO 80 % (41-73); Platelet Count 141 K/mm3 (150-400); RDW Coefficient Variation 12.8 % (11.7-14.2); RDW Standard Deviation 44.3 fL (35.1-46.3); Red Blood Cell Count 3.62 M/mm3 (3.80-5.20); White Blood Cell Count 10.54 K/mm3 (4.00-11.30)
[2021-09-22 23:27] LABS: International Normalized Ratio 1.19; Prothrombin Time Results 12.4 Sec (9.7-11.5)
[2021-09-22 23:29] LABS: Albumin, Blood 3.5 g/dL (3.4-5.0); Albumin/Globulin Ratio 1.2 (0.8-1.8); Bilirubin, Total 0.5 mg/dL (0.1-1.0); Bun/Creatinine Ratio 27.3 (12.0-20.0); Calcium, Blood 8.7 mg/dL (8.5-10.1); Creatinine, Blood 0.92 mg/dL (0.40-1.00); Potassium, Blood 4.4 mmol/L (3.5-5.5); Total Protein, Blood 6.5 g/dL (6.4-8.2)
--- NOTE | 2021-09-23 04:53 | NUR ---
ASSUMED CARE OF PT AT 0030. PT IS A&0X4, HAS DANIEL D/T HIP FRACTURE, AND IS ABLE TO MAKE NEEDS KNOWN. ARRIVES TO THE SURGICAL FLOOR FROM ED, WILL HAVE SURGICAL CONSULT TODAY. PT SLEEPS WITH CPAP, ABLE TO SLEEP 5+ HOURS SINCE ARRIVING TO FLOOR. PAIN IS CONTROLLED WITH PRN FENTANYL 25MCG Q4H, PT REQUIRED EXTRA DOSE OF FENTANYL DURING THE NIGHT. WILL CONTINUE TO MONITOR THIS PT AND GIVE HANDOFF REPORT TO DAYSHIFT RN
[2021-09-23 05:36] LABS: BASOPHILS ABSOLUTE AUTO 0.02 K/mm3 (0.00-0.23); BASOPHILS PERCENT AUTO 0 % (0-2); EOSINOPHILS ABSOLUTE AUTO 0.02 K/mm3 (0.00-0.68); EOSINOPHILS PERCENT AUTO 0 % (0-6); Hematocrit 36.5 % (33.0-51.0); Hemoglobin 12.4 g/dL (11.5-16.0); IMMATURE GRAN ABSOLUTE AUTO 0.04 K/mm3 (0.00-0.10); IMMATURE GRAN PERCENT AUTO 0 % (0-1); LYMPHOCYTES ABSOLUTE AUTO 1.17 K/mm3 (0.84-5.20); LYMPHOCYTES PERCENT AUTO 11 % (21-46); MONOCYTES ABSOLUTE AUTO 1.05 K/mm3 (0.16-1.47); MONOCYTES PERCENT AUTO 10 % (4-13); Mean Corpuscular HGB 32.4 pg (26.0-34.0); Mean Corpuscular Volume 95 fL (80-100); Mean Platelet Volume 9.5 fL (9.1-12.4); NEUTROPHILS ABSOLUTE AUTO 8.03 K/mm3 (1.96-9.15); NEUTROPHILS PERCENT AUTO 78 % (41-73); Platelet Count 138 K/mm3 (150-400); RDW Coefficient Variation 12.8 % (11.7-14.2); RDW Standard Deviation 44.4 fL (35.1-46.3); Red Blood Cell Count 3.83 M/mm3 (3.80-5.20); White Blood Cell Count 10.33 K/mm3 (4.00-11.30)
[2021-09-23 05:57] LABS: Bun/Creatinine Ratio 27.9 (12.0-20.0); Calcium, Blood 8.8 mg/dL (8.5-10.1); Creatinine, Blood 0.86 mg/dL (0.40-1.00); Potassium, Blood 4.4 mmol/L (3.5-5.5)
--- NOTE | 2021-09-23 17:04 | NUR ---
SHIFT SUMMARY PATIENT DROWSY AND PAINFUL THROUGHOUT SHIFT. ORIENTED WHEN AWAKE. RATES PAIN 6-8/10 IN LEFT HIP. BEDREST AND NWB TO LEFT HIP. DANIEL PATENT AND DRAINING. TOLERATING SMALL AMOUNT OF PO INTAKE OF CARDIAC DIET AND FLUIDS. ICE TO LEFT HIP. MEDICATED FOR PAIN PER EMAR. LEFT LEG SHORTENED. USES CPAP AT NIGHT. NPO AFTER 0000 FOR PLANNED LEFT HIP RODDING TOMORROW 09/24/[address] ROSALBA TERRY. NSR IN 70S ON TELE. SPOUSE VISITED FOR A COUPLE HOURS THIS AFTERNOON.
--- NOTE | 2021-09-24 05:34 | NUR ---
ASSUMED CARE OF PT AT 1900. NO ACUTE CHANGES THIS SHIFT. PT IS A&0X4, IS ON BEDREST WITH DANIEL IN PLACE, AND CALLS APPROPRIATELY. PT HAS BEEN NPO SINCE MIDNIGHT FOR HIP SURGERY SCHEDULED TODAY. CSM IN ALL EXTREMITIES. PAIN IS WELL CONTROLLED WITH PRN GUIDO 10MG. PT USES CPAP TO SLEEP, WILL DE SAT TO MID 80s IF CPAP NOT IN USE. PT ABLE TO SLEEP 7+ HOURS THIS SHIFT. WILL CONTINUE TO MONITOR AND GIVE REPORT TO DAYSKYMIKE MADERA
--- NOTE | 2021-09-24 12:38 | NUR ---
PATIENT JUST LEFT FOR OR.
--- NOTE | 2021-09-24 14:21 | NUR ---
09/24/21 1421 Shanice Daniels PATIENT HAD DANIEL IN PLACE PRIOR TO ENTERING OR.
--- NOTE | 2021-09-24 15:30 | NUR ---
6L OXYGEN APPLIED VIA NASAL CANULA
--- NOTE | 2021-09-24 16:46 | NUR ---
SHIFT SUMMARY: POD 0 LEFT HIP NAILING PATIENT CAME BACK FROM PACU TODAY 09/24/21 AT 1600. PATIENT IS A&OX3. SHE IS ON NC WITH 3L OXYGEN WITH >90% OXYGEN SATS. PATIENT DENIES PAIN AT THIS TIME BUT IS AWARE OF PO PAIN MEDS. LEFT HIP HAS GAUZE WITH FOAM TAPE THAT IS C/D/I. PATIENT CAN MOVE FINGERS AND TOES. PEDAL PULSES ARE STRONG. PATIENT IS LAYING IN BED. CALL LIGHT WITHIN REACH. AT BEDSIDE. SHE IS TOLERATING PO INTAKE. DANIEL IN PLACE WITH NO KINKS IN TUBING. THE PLAN IS TO WORK WITH PHYSICAL THERAPY IN THE MORNING AND TO HAVE PAIN MANAGED.
[2021-09-25 04:05] LABS: BASOPHILS ABSOLUTE AUTO 0.02 K/mm3 (0.00-0.23); BASOPHILS PERCENT AUTO 0 % (0-2); EOSINOPHILS ABSOLUTE AUTO 0.01 K/mm3 (0.00-0.68); EOSINOPHILS PERCENT AUTO 0 % (0-6); Hematocrit 30.6 % (33.0-51.0); Hemoglobin 10.4 g/dL (11.5-16.0); IMMATURE GRAN ABSOLUTE AUTO 0.05 K/mm3 (0.00-0.10); IMMATURE GRAN PERCENT AUTO 0 % (0-1); LYMPHOCYTES ABSOLUTE AUTO 1.59 K/mm3 (0.84-5.20); LYMPHOCYTES PERCENT AUTO 12 % (21-46); MONOCYTES ABSOLUTE AUTO 1.58 K/mm3 (0.16-1.47); MONOCYTES PERCENT AUTO 12 % (4-13); Mean Corpuscular HGB 32.2 pg (26.0-34.0); Mean Corpuscular Volume 95 fL (80-100); Mean Platelet Volume 9.7 fL (9.1-12.4); NEUTROPHILS ABSOLUTE AUTO 9.64 K/mm3 (1.96-9.15); NEUTROPHILS PERCENT AUTO 75 % (41-73); Platelet Count 151 K/mm3 (150-400); RDW Coefficient Variation 12.7 % (11.7-14.2); Red Blood Cell Count 3.23 M/mm3 (3.80-5.20); White Blood Cell Count 12.89 K/mm3 (4.00-11.30)
--- NOTE | 2021-09-25 04:25 | NUR ---
ASSUMED CARE OF PT AT 1900. PT A&OX4, MOD ASSIST OOB, AND IS ABLE TO MAKE NEEDS KNOWN. POST OP DAY 1 FOR L HIP NAILING, CSM INTACT, DRESSING CDI. HAS DANIEL IN PLACE. USES CPAP FOR OBSTRUCTIVE SLEEP APNEA. HAS GUIDO 10MG FOR PAIN. TOLERATING DIET. PT ABLE TO SLEEP 7+ HOURS THIS SHIFT. WILL CONTINUE TO MONITOR AND GIVE REPORT TO DAY SHIFT RN.
[2021-09-25 04:28] LABS: Albumin, Blood 2.8 g/dL (3.4-5.0); Albumin/Globulin Ratio 0.8 (0.8-1.8); Bilirubin, Total 0.8 mg/dL (0.1-1.0); Bun/Creatinine Ratio 21.4 (12.0-20.0); Calcium, Blood 8.4 mg/dL (8.5-10.1); Creatinine, Blood 0.75 mg/dL (0.40-1.00); Globulin, Blood 3.4 g/dL (2.2-4.0); Potassium, Blood 4.4 mmol/L (3.5-5.5); Total Protein, Blood 6.2 g/dL (6.4-8.2)
--- NOTE | 2021-09-25 17:34 | NUR ---
SHIFT SUMMARY POD 1 LEFT HIP PINNING. DRESSINGS CHANGED TODAY TO 2 MEDIPORE DRESSINGS, C/D/I. PATIENT WORKED WITH PHYSICAL THERAPY AND TOLERATED WELL, 1P MIN-MOD ASSIST TO CHAIR & BSC, WBAT ON LEFT LEG. PAIN MANAGED WITH 2 OXY PER EMAR. EATING & DRINKING WELL. DANIEL REMOVED TODAY. VOIDING WELL, INCONT AT TIMES, ATTENDS IN PLACE. PATIENT HAS SEEMED CONFUSED A COUPLE TIMES THIS SHIFT, FOR EXAMPLE SHE GATEHRED ALL HER THINGS FROM HER BEDSIDE TABLE AND SAID "OKAY I'M READY TO GO" THIS RN ASKED "GO WHERE", SHE STATED, "I THOUGHT YOU WERE TAKING ME TO MY ROOM NOW". PATIENT REORIENTED WELL. CALLS APPROPRIATELY. WILL REPORT TO ONCOMING RN.
[2021-09-26 04:47] LABS: BASOPHILS ABSOLUTE AUTO 0.04 K/mm3 (0.00-0.23); BASOPHILS PERCENT AUTO 0 % (0-2); EOSINOPHILS ABSOLUTE AUTO 0.15 K/mm3 (0.00-0.68); EOSINOPHILS PERCENT AUTO 1 % (0-6); Hematocrit 27.6 % (33.0-51.0); Hemoglobin 9.5 g/dL (11.5-16.0); IMMATURE GRAN ABSOLUTE AUTO 0.05 K/mm3 (0.00-0.10); IMMATURE GRAN PERCENT AUTO 1 % (0-1); LYMPHOCYTES ABSOLUTE AUTO 1.98 K/mm3 (0.84-5.20); LYMPHOCYTES PERCENT AUTO 18 % (21-46); MONOCYTES ABSOLUTE AUTO 1.33 K/mm3 (0.16-1.47); MONOCYTES PERCENT AUTO 12 % (4-13); Mean Corpuscular HGB 32.5 pg (26.0-34.0); Mean Corpuscular HGB Conc 34.4 g/dL (31.5-36.5); Mean Corpuscular Volume 95 fL (80-100); Mean Platelet Volume 9.7 fL (9.1-12.4); NEUTROPHILS PERCENT AUTO 67 % (41-73); Platelet Count 152 K/mm3 (150-400); RDW Coefficient Variation 12.8 % (11.7-14.2); RDW Standard Deviation 43.8 fL (35.1-46.3); Red Blood Cell Count 2.92 M/mm3 (3.80-5.20); White Blood Cell Count 10.75 K/mm3 (4.00-11.30)
[2021-09-26 05:15] LABS: Albumin, Blood 2.7 g/dL (3.4-5.0); Albumin/Globulin Ratio 0.8 (0.8-1.8); Bilirubin, Total 0.8 mg/dL (0.1-1.0); Bun/Creatinine Ratio 29.8 (12.0-20.0); Calcium, Blood 8.3 mg/dL (8.5-10.1); Creatinine, Blood 0.84 mg/dL (0.40-1.00); Globulin, Blood 3.3 g/dL (2.2-4.0); Potassium, Blood 4.2 mmol/L (3.5-5.5)
--- NOTE | 2021-09-26 05:17 | NUR ---
SHIFT SUMMARY NO ACUTE CHANGES TO REPORT THIS SHIFT, POD 1 LEFT HIP PINNING. PT HAS RESTED OFF AND ON T/O THE SHIFT. PT CONFUSED TO PLACE AND SITUATION. PT REMOVES BIOX AND TELE PATCHES SEVERAL TIMES THIS SHIFT, REMOVES CPAP ALSO. PT HAS TO BE REORIENTED OFTEN. PT DENIES PAIN T/O THE SHIFT. PT HAS HAD SOME WEAKNESS THIS SHIFT, REQUIRING THE USE OF THE BEDPAN DURING THE NIGHT. VITALS STABLE. BED IN LOWEST POSITION, CALL LIGHT WITHIN REACH.
--- NOTE | 2021-09-26 11:11 | NUR ---
TRANSFER OF CARE PATIENT DROWSY AND FORGETFUL. OCCASIONALLY DISORIENTED AND ATTEMPTS TO GET UP WITHOUT CALLING FOR HELP. CHAIR ALARM IN PLACE. MEDIPORE DRESSINGS TO LEFT HIP C/D/I. ICE TO LEFT HIP. 1 PERSON MOD ASSIST TO TRANSFER FROM BED TO WHEELCHAIR AND RECLINER. NEEDS FREQUENT CUES ON USE OF FWW. PAIN IS TOLERABLE WHEN NOT MOVING, SEVERE WITH MOVEMENT. MEDICATED FOR PAIN PER EMAR. TOLERATING CARDIAC DIET AND LIQUIDS. VOIDING WELL. NSR IN 70S ON TELE. PLAN TO DISCHARE TO SNF WHEN BED AVAILABLE. REPORT GIVEN TO RN ASSUMING CARE.
--- NOTE | 2021-09-26 12:40 | NUR ---
CARE ASSUMED PT SITTING UP TO THE CHAIR, SHE APPEARS COMFORTABLE AND DENIES PAIN WHILE AT REST. CALL LIGHT WITHIN REACH. WILL CONTINUE TO MONITOR.
--- NOTE | 2021-09-26 15:06 | NUR ---
PT IS RESTING IN HER CHAIR WITH HER EYES CLOSED, SHE APPEARS TO BE SLEEPING. RESPIRATIONS EVEN AND UNLABORED. PT APPEARS COMFORTABLE. WILL CONTINUE TO MONITOR.
--- NOTE | 2021-09-26 16:12 | NUR ---
DR. DAVILA NOTIFIED OF DIASTOLIC BLOOD PRESSURE OF 45. PT IS NOT TACHY AT THIS TIME. DR. DAVILA REQUESTED THAT SHE BE NOTIFIED IF PT BECOMES TACHYCARDIC.
--- NOTE | 2021-09-26 16:29 | NUR ---
SHIFT SUMMARY PT IS POD#@ FROM A L HIP ORIF AND RODDING. PAIN IS MANAGED WITH PO PAIN MEDICTION. PT HAS BEEN SLEEPING FOR MUCH OF THE DAY BUT IS ALERT WHEN AWAKENED. PT IS A 1-2 ASSIST WITH GAIT BELT AND WALKER TO THE BEDSIDE COMMODE. PT HAS SAT UP IN THE CHAIR MUCH OF THE DAY, TAB ALARM IN PLACE. PT'S H&H IS TRENDING DOWN, DR. DAVILA IS AWARE. WILL MONITOR UNTIL REPORT TO NOC RN.
[2021-09-27 04:37] LABS: BASOPHILS ABSOLUTE AUTO 0.05 K/mm3 (0.00-0.23); BASOPHILS PERCENT AUTO 1 % (0-2); EOSINOPHILS ABSOLUTE AUTO 0.21 K/mm3 (0.00-0.68); EOSINOPHILS PERCENT AUTO 2 % (0-6); Hematocrit 27.7 % (33.0-51.0); Hemoglobin 9.4 g/dL (11.5-16.0); IMMATURE GRAN ABSOLUTE AUTO 0.03 K/mm3 (0.00-0.10); IMMATURE GRAN PERCENT AUTO 0 % (0-1); LYMPHOCYTES ABSOLUTE AUTO 2.26 K/mm3 (0.84-5.20); LYMPHOCYTES PERCENT AUTO 22 % (21-46); MONOCYTES ABSOLUTE AUTO 1.18 K/mm3 (0.16-1.47); MONOCYTES PERCENT AUTO 11 % (4-13); Mean Corpuscular HGB 32.5 pg (26.0-34.0); Mean Corpuscular HGB Conc 33.9 g/dL (31.5-36.5); Mean Corpuscular Volume 96 fL (80-100); Mean Platelet Volume 9.4 fL (9.1-12.4); NEUTROPHILS ABSOLUTE AUTO 6.76 K/mm3 (1.96-9.15); NEUTROPHILS PERCENT AUTO 65 % (41-73); Platelet Count 184 K/mm3 (150-400); RDW Coefficient Variation 12.9 % (11.7-14.2); RDW Standard Deviation 44.7 fL (35.1-46.3); Red Blood Cell Count 2.89 M/mm3 (3.80-5.20); White Blood Cell Count 10.49 K/mm3 (4.00-11.30)
[2021-09-27 05:05] LABS: Albumin, Blood 2.6 g/dL (3.4-5.0); Albumin/Globulin Ratio 0.7 (0.8-1.8); Bilirubin, Total 0.9 mg/dL (0.1-1.0); Bun/Creatinine Ratio 39.3 (12.0-20.0); Calcium, Blood 8.4 mg/dL (8.5-10.1); Creatinine, Blood 0.71 mg/dL (0.40-1.00); Globulin, Blood 3.5 g/dL (2.2-4.0); Potassium, Blood 4.7 mmol/L (3.5-5.5); Total Protein, Blood 6.1 g/dL (6.4-8.2)
--- NOTE | 2021-09-27 05:08 | NUR ---
SHIFT SUMMARY SLEPT MOST OF NIGHT. UP TO COMMODE PRN. MEDICATED FOR PAIN PRN. CPAP WHEN SLEEPING, CONT BIOX. 1 ASSIST WITH FWW AND GB TO COMMODE. FORGETFUL AT TIMES. WAITING FOR SNF DC.
--- NOTE | 2021-09-27 16:39 | NUR ---
REPORT CALLED TO SANTY AARON AT [facility]. TRANSPORTATION ARRANGED FOR 1829.
[2021-09-27 16:51] LABS: SARS-Cov-2 (COVID-19) PCR, MMC NEGATIVE (NEGATIVE)
--- NOTE | 2021-09-27 18:47 | NUR ---
DISCHARGE POD 2 LEFT HIP PINNING. X2 MEDIPORE DRESSINGS IN PLACE. LIGHT DRAINAGE PRESENT, [facility] NURSE REQUESTED TO LEAVE CURRENT DRESSING IN PLACE BECAUSE THEY WILL CHANGE IT ANYWAY. PATIENT TOLERATING PHYSICAL THERAPY WELL, 1P ASSIST WITH FWW&GB TO BR & CHAIR. EATING, DRINKING, & VOIDING WELL. ESCORTED OUT VIA W/C WITH [facility].
== END 2021-09-27 18:30 | DRG 482 ==
LOC: ER 20:04 → ERHOLD 22:32 → SURS 22:32
PROVIDERS: Family Medicine; Orthopaedic Surgery; Student in an Organized Health Care Education/Training Program; ADMIT Family Medicine
PROC: 0QS736Z Reposition Left Upper Femur with Intramedullary Internal Fixation Device, Percutaneous Approach (ICD-10-PCS; principal; 2021-09-24 12:30)
DX: S72.142A Displaced intertrochanteric fracture of left femur, initial encounter for closed fracture (principal); W18.30XA Fall on same level, unspecified, initial encounter; E78.5 Hyperlipidemia, unspecified; N18.31 Chronic kidney disease, stage 3a; Z20.822 Contact with and (suspected) exposure to COVID-19; F41.3 Other mixed anxiety disorders; D69.6 Thrombocytopenia, unspecified; G47.33 Obstructive sleep apnea (adult) (pediatric); I48.91 Unspecified atrial fibrillation; F41.9 Anxiety disorder, unspecified; Z79.899 Other long term (current) drug therapy; Z90.722 Acquired absence of ovaries, bilateral; Z90.710 Acquired absence of both cervix and uterus; Z98.890 Other specified postprocedural states; I50.9 Heart failure, unspecified
CPT/HCPCS: 36415; 51702; 73502; 80048; 80053; 83880; 85025; 85610; 85730; 93005; 93010; 94660; 94762; 96374-59; 96375-59; 97110; 97116; 97162; 97166; 97530; 97535; 99285-25; A9270; C1713; J0690; J1100; J1170; J2405; J2704; J3010; J7120; U0004